=== PATIENT | male | born 1940 | race Caucasian/White ===

== ENCOUNTER 2018-11-16 12:21 | Outpatient (CLI) | payer MEDICARE, BC ==
[~2018-11-16 12:21] MED LIST: Gadobenate Dimeglumine 529 MG/1 ML (20ML VIAL) ONE
--- NOTE | 2018-11-16 14:59 | MRI ---
EXAM: MRI lumbar spine without and with contrast HISTORY: Back pain COMPARISON: 02/19/2015 TECHNIQUE: Multiple planar multisequence MR images were obtained of the lumbar spine without and with contrast. FINDINGS: The vertebral bodies demonstrate normal height and alignment without fracture or subluxation. General ized disc desiccation is seen. The L4/5 intervertebral disc is decreased in height. There are cysts in the bilateral kidneys. The paraspinal soft tissues are unremarkable. No marrow signal abnormality is present. The conus medullaris terminates normally at T12/L1. No abnormal enhancement is seen on this examination. T12/L1: No significant posterior bulge or protrusion. No posterior facet arthrosis. No central jack l stenosis. No neural foraminal stenosis L1/2: No significant posterior bulge or protrusion. No posterior facet arthrosis. No central canal stenosis. No neural foraminal stenosis L2/3: A small disc osteophyte complex is present. Mild bilateral posterior facet arthrosis. Moderat e central canal stenosis. Mild bilateral neural foraminal stenosis. L3/4: A large disc osteophyte complex is associated with a superimposed generalized concentric disc b ulge. Severe bilateral posterior facet arthrosis. Severe central canal stenosis. Moderate bilateral neural foraminal stenosis. L4/5: A small disc osteophyte complex is seen. Mild bilateral posterior facet arthrosis. No central canal stenosis. Mild left and moderate right neural foraminal stenosis. L5/S1: No significant posterior bulge or protrusion. Moderate bilateral posterior facet arthrosis. No central canal stenosis. Mild right neural foraminal stenosis. No left neural foraminal stenosis. 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
== END 2018-11-16 12:22 | disposition home or self-care (01) ==
LOC: SCSMRI 12:21
PROVIDERS: ATTEND Internal Medicine
DX: M48.061 Spinal stenosis, lumbar region without neurogenic claudication (principal); M53.3 Sacrococcygeal disorders, not elsewhere classified; R25.2 Cramp and spasm; M47.816 Spondylosis without myelopathy or radiculopathy, lumbar region; C83.30 Diffuse large B-cell lymphoma, unspecified site; Z85.72 Personal history of non-Hodgkin lymphomas; Z98.890 Other specified postprocedural states
CPT/HCPCS: 72158; 82565

== ENCOUNTER 2020-12-17 08:56 | Outpatient (CLI) | payer MEDICARE, BC | END 2020-12-17 08:57 | disposition home or self-care (01) | LOC: BICMAMMO 08:56 | PROVIDERS: ATTEND Internal Medicine | DX: N62 Hypertrophy of breast (principal) | CPT/HCPCS: 76642; 77066; G0279 ==

== ENCOUNTER 2024-08-31 14:53 | Outpatient (CLI) | payer MEDICARE | END 2024-08-31 14:54 | disposition home or self-care (01) | LOC: BICMAMMO 14:53 | PROVIDERS: ATTEND Internal Medicine | DX: Z13.820 Encounter for screening for osteoporosis (principal); M81.0 Age-related osteoporosis without current pathological fracture; M85.851 Other specified disorders of bone density and structure, right thigh | CPT/HCPCS: 77080 ==